=== PATIENT | female | born 1995 ===

== ENCOUNTER 2016-08-16 01:03 | Emergency (ER) | payer MEDICAID ==
[2016-08-16 01:21] VITALS: RESP 18
--- NOTE | 2016-08-16 01:27 | C.PDOC ---
History Of Present Illness patient tripped and fell hitting her head. No LOC . remembers the event. No n/v / visual changes. Has had 4 drinks prior to fall Time Seen by Provider: 08/16/16 01:27 Chief Complaint (Nursing): Trauma History Per: Patient History/Exam Limitations: no limitations Injury Occurred (Timing): Hours Ago: Patient States: Fell Striking Head Severity: Mild Pain Scale Rating Of: 2 Loss Of Consciousness: No Recent travel outside of the [place]: No Additional History Per: Family Past Medical History Reviewed: Historical Data, Nursing Documentation, Vital Signs Vital Signs: Last Vital Signs Temp 98.6 F 08/16/16 01:12 Pulse 98 H 08/16/16 01:12 Resp 18 08/16/16 01:12 BP 135/84 08/16/16 01:12 Pulse Ox 99 08/16/16 01:37 - Medical History PMH: Anxiety, Asthma, Depression Family History: States: No Known Family Hx - Social History Hx Alcohol Use: Yes Hx Substance Use: No - Immunization History Hx Tetanus Toxoid Vaccination: Yes (November 2015) Hx Influenza Vaccination: No Hx Pneumococcal Vaccination: No Review Of Systems Constitutional: Negative for: Fever, Chills Eyes: Negative for: Redness Cardiovascular: Negative for: Chest Pain Respiratory: Negative for: Shortness of Breath Gastrointestinal: Negative for: Nausea, Vomiting, Abdominal Pain Musculoskeletal: Negative for: Back Pain Skin: Positive for: Rash (small abrasion forehead) Neurological: Negative for: Weakness, Numbness, Confusion, Altered Mental Status , Headache, Dizziness Psych: Positive for: Anxiety Physical Exam - Physical Exam Appears: Non-toxic, No Acute Distress Skin: Warm, Dry, Rash (small abrasion forehead) Head: Normacephalic, No Tenderness, Abrasion (forehead) Eye(s): bilateral: Normal Inspection, PERRL, EOMI Ear(s): Bilateral: Normal Nose: Normal Oral Mucosa: Moist Neck: Normal ROM, Trachea Midline, No Midline Cervical Tenderness, No Paracervical Tenderness, No Step Off Deformity, Supple Extremity: Normal ROM Extremity: Bilateral: Atraumatic, No Pedal Edema, Normal Color And Temperature Neurological/Psych: Oriented x3, Normal Speech, Normal Cognition Gait: Steady ED Course And Treatment O2 Sat by Pulse Oximetry: 99 Disposition Counseled Patient/Family Regarding: Studies Performed, Diagnosis - Disposition Referrals: Lillie Stubbs MD [Non-Staff] - Disposition: HOME/ ROUTINE Disposition Time: 01:27 Condition: FAIR Instructions: Head Injury (ED), Abrasion (ED) - Clinical Impression Clinical Impression: Minor head injury without loss of consciousness, Forehead abrasion
[2016-08-16 02:29] VITALS: BP 118/77; PULSE 73; TEMP 97.4; O2SAT 98
--- NOTE | 2016-08-16 08:18 | CT ---
PROCEDURE: CT HEAD WITHOUT CONTRAST. HISTORY: fall, forehead pain COMPARISON: None available. TECHNIQUE: Axial computed tomography images were obtained through the head/brain without intravenous contrast. Radiation dose: Total exam DLP = 839 mGy-cm. This CT exam was performed using one or more of the following dose reduction techniques: Automated exposure control, adjustment of the mA and/or kV according to patient size, and/or use of iterative reconstruction technique. FINDINGS: HEMORRHAGE: No intracranial hemorrhage. BRAIN: No mass effect or edema. No atrophy or chronic microvascular ischemic changes. VENTRICLES: Unremarkable. No hydrocephalus. CALVARIUM: Unremarkable. PARANASAL SINUSES: Mild mucosal thickening in the paranasal sinuses. MASTOID AIR CELLS: Unremarkable as visualized. No inflammatory changes. OTHER FINDINGS: None. IMPRESSION: No acute intracranial abnormality. Mild sinus mucosal disease. If focal neurologic deficit persists, consider MRI. These findings were preliminarily reported at 2:15 a.m. on 08/16/[address] Adam Corley from [facility].
== END 2016-08-16 02:32 | disposition home or self-care (01) ==
LOC: C.ER 01:03
DX: S00.81XA Abrasion of other part of head, initial encounter (principal); W01.0XXA Fall on same level from slipping, tripping and stumbling without subsequent striking against object, initial encounter